=== PATIENT | male | born 2000 | race Caucasian/White ===

== ENCOUNTER 2022-03-17 11:17 | Emergency (ER) | payer SELFPAY ==
[~2022-03-17] VITALS: Ht 167.6 cm; Wt 47.6 kg
--- NOTE | 2022-03-17 12:30 | NUR ---
Recived pt 21 yrs male came by pramigic genralized weekness and pain for 3 days cc/o hangery for 3day awake and alert no distress
--- NOTE | 2022-03-17 13:00 | NUR ---
seen by DR. SULLIVAN ORDER WAS GIVEN
[2022-03-17] MEDS ORDERED: ACETAMINOPHEN ES 500 MG TABLET PO ONE (13:30)
[2022-03-17] MEDS ORDERED: IBUPROFEN 400 MG TABLET PO ONE (13:30)
[2022-03-17 14:01] LABS: BASOPHILS % (AUTO) 0.3 % (0.0-2.0); EOSINOPHILS % (AUTO) 0.6 % (0.0-6.0); HEMATOCRIT 47 % (39-51); HEMOGLOBIN 15.6 g/dL (13.5-17.5); LYMPHOCYTES # (AUTO) 1.1 K/uL (0.8-4.8); LYMPHOCYTES % (AUTO) 12.5 % (20.0-44.0); MEAN CORPUSCULAR HGB CONC 33 g/dl (31.0-36.0); MEAN CORPUSCULAR VOLUME 88 fL (80-96); MONOCYTES # (AUTO) 0.3 K/uL (0.1-1.30); MONOCYTES % (AUTO) 3.8 % (2.0-12.0); NEUTROPHILS # (AUTO) 7.2 K/uL (1.8-8.9); NEUTROPHILS % (AUTO) 82.8 % (43.0-81.0); PLATELET COUNT (AUTO) 87 K/uL (150-450); RED BLOOD CELL COUNT(AUTO) 5.38 MIL/uL (4.5-6.0); WHITE BLOOD COUNT (AUTO) 8.7 K/uL (4.3-11.0)
[2022-03-17] MEDS ORDERED: IBUPROFEN 400 MG TABLET ONE (14:07)
[2022-03-17] MEDS ORDERED: ACETAMINOPHEN ES 500 MG TABLET ONE (14:07)
--- NOTE | 2022-03-17 14:15 | NUR ---
RESTING AND ASLEEPY
[2022-03-17 14:21] LABS: ALBUMIN 4.6 g/dL (3.4-5.0); BILIRUBIN,DIRECT 0.2 mg/dL (0.0-0.2); BILIRUBIN,TOTAL 0.7 mg/dL (0.2-1.0); CALCIUM, SERUM 9.4 mg/dL (8.5-10.1)
--- NOTE | 2022-03-17 15:10 | NUR ---
PT SLEEPY NO N/V NO PAIN NOTED
[2022-03-17] MEDS ORDERED: LORAZEPAM 1 MG TABLET PO ONE (15:30)
[2022-03-17] MEDS ORDERED: LORAZEPAM 1 MG TABLET ONE (15:39)
--- NOTE | 2022-03-17 16:13 | NUR ---
ASLEEPY WATING FOR DISPO
[2022-03-17 16:22] LABS: LYMPHOCYTES % (MANUAL) 17 % (16-48); MONOCYTES % (MANUAL) 2 % (0-11.0); NEUTROPHILS % (MANUAL) 81 (42-76)
--- NOTE | 2022-03-17 17:39 | NUR ---
PT COMFORTABLE AND ASLEEPY NO PAIN
--- NOTE | 2022-03-17 18:30 | NUR ---
PT ASLEEPY NO COMPLAINE WATING FOR DISPO
--- NOTE | 2022-03-17 19:57 | NUR ---
hand off to SHENG PIERCE
--- NOTE | 2022-03-17 20:00 | NUR ---
RECEIVED REPORT FROM NIALL PIERCE FOR RIC
--- NOTE | 2022-03-17 20:33 | NUR ---
FOOD AND DRINK PROVIDED TO PT
--- NOTE | 2022-03-17 21:36 | NUR ---
Patient discharged to home in stable condition. Written and verbal after care instructions given. Patient verbalizes understanding of instruction.
[2022-03-17 21:56] VITALS: BP 130/70
[2022-03-18] MEDS ORDERED: ONDANSETRON HCL/PF 4 MG/2 ML VIAL ONE (11:23)
[2022-03-18] MEDS ORDERED: KETOROLAC TROMETHAMINE INJ 30 MG/ML VIAL ONE (11:24)
[2022-03-18] MEDS ORDERED: MORPHINE SULFATE INJ 4 MG/ML DISP.SYRIN ONE (11:24)
[2022-03-18] MEDS ORDERED: KETOROLAC TROMETHAMINE 15 MG/ML VIAL ONE (13:36)
== END 2022-03-17 21:56 | disposition home or self-care (01) ==
LOC: ER 11:19
DX: R53.1 Weakness (principal); Z87.11 Personal history of peptic ulcer disease
CPT/HCPCS: 36415; 71045; 80048; 80076; 82550; 83690; 84484 ×2; 85007; 85025; 93005; 99285; A6410; J1885; J2270; J2405